=== PATIENT | male | born 1970 | race Caucasian/White ===

== ENCOUNTER 2018-02-11 12:04 | Inpatient (IN) | payer MEDICAID ==
[~2018-02-11] VITALS: Ht 162.6 cm; Wt 71.7 kg
[~2018-02-11 12:04] MED LIST: ALBU05 IH
[2018-02-11] MEDS ORDERED: METHYLPREDNISOLONE SOD SUCC 125 MG/2 ML VIAL IV STA (12:09)
[2018-02-11] MEDS ORDERED: ALBUTEROL (0.083%) 2.5MG/3ML NEB HHN STA (12:09)
[2018-02-11] MEDS ORDERED: MAGNESIUM 2 G PREMIX 50 ML IV STA (12:09)
[2018-02-11] MEDS ORDERED: IPRATROPIUM BROMIDE (0.02%) 0.5MG/2.5ML NEB HHN STA (12:09)
[2018-02-11 12:33] LABS: HEMATOCRIT. 43.8 % (42.0-52.0); HEMOGLOBIN. 15.1 g/dL (14.0-18.0); MEAN CORPUSCULAR VOLUME 93.2 fL (80.0-94.0); MEAN PLATELET VOLUME 8.1 fl (7.4-10.4); PLATELET 210 x1000/uL (130-400); RED CELL DISTRIBUTION WIDTH 14.6 % (11.6-14.6)
[2018-02-11 12:40] LABS: CHLORIDE 108 mEq/L (98-107)
[2018-02-11 12:41] LABS: PARTIAL THROMBOPLASTIN TIME 27.3 sec (23.4-31.0); PROTHROMBIN TIME 10.4 sec (9.4-11.6)
[2018-02-11] MEDS ORDERED: LEVOFLOXACIN 500MG PREMIX 100 ML IV ONE (13:00)
[2018-02-11] MEDS ORDERED: SODIUM CHLORIDE 0.9% 1000ML BAG (SEPSIS BOLUS) IV ONE (13:00)
[2018-02-11 14:28] LABS: PLATELET ESTIMATE NORMAL
[2018-02-11] MEDS ORDERED: IPRATROPIUM/ALBUTEROL 0.5-3(2.5)MG/3ML NEB HHN PRN (14:45)
[2018-02-11 15:15] VITALS: BP 110/76
[2018-02-11 16:00] VITALS: BP 111/80
[2018-02-11] MEDS ORDERED: PNEUMOCOCCAL 23-VAL P-SAC VAC 0.5 ML IM ONE (16:00)
[2018-02-11] MEDS: IPRATROPIUM/ALBUTEROL 0.5-3(2.5)MG/3ML NEB HHN SCH ×2 (16:15→21:08)
[2018-02-11 20:00] VITALS: BP 102/69
[2018-02-11] MEDS: METHYLPREDNISOLONE SOD SUCC 40 MG/ML VIAL IV SCH (21:19)
[2018-02-12] VITALS: BP 110/65
[2018-02-12] MEDS: IPRATROPIUM/ALBUTEROL 0.5-3(2.5)MG/3ML NEB HHN SCH ×6 (01:06→21:29)
[2018-02-12 04:00] VITALS: BP 101/52
[2018-02-12] MEDS: METHYLPREDNISOLONE SOD SUCC 40 MG/ML VIAL IV SCH ×3 (05:15→21:34)
[2018-02-12 06:35] LABS: HEMATOCRIT. 41.6 % (42.0-52.0); HEMOGLOBIN. 14.2 g/dL (14.0-18.0); LYMPHOCYTES % 8.2 % (20.0-50.0); MEAN CORPUSCULAR HEMOGLOBIN 32.1 pg (28.0-32.0); MEAN PLATELET VOLUME 8.6 fl (7.4-10.4); MONOCYTES % 3.3 % (2.0-8.0); NEUTROPHILS % 88.5 % (40.0-76.0); PLATELET 209 x1000/uL (130-400); RED BLOOD CELL COUNT 4.42 mill/uL (4.7-6.1); RED CELL DISTRIBUTION WIDTH 14.7 % (11.6-14.6)
[2018-02-12 08:00] VITALS: BP 112/67
[2018-02-12 08:18] LABS: CHLORIDE 111 mEq/L (98-107)
[2018-02-12 12:00] VITALS: BP 106/62
[2018-02-12 16:00] VITALS: BP 118/69
[2018-02-12 20:00] VITALS: BP 107/65
[2018-02-13] VITALS: BP 97/54
[2018-02-13] MEDS: IPRATROPIUM/ALBUTEROL 0.5-3(2.5)MG/3ML NEB HHN SCH ×6 (00:43→23:45)
[2018-02-13 04:00] VITALS: BP 98/65
[2018-02-13] MEDS: METHYLPREDNISOLONE SOD SUCC 40 MG/ML VIAL IV SCH ×3 (06:14→21:10)
[2018-02-13 09:00] VITALS: BP 101/63
[2018-02-13 12:00] VITALS: BP 101/64
[2018-02-13 16:00] VITALS: BP 100/61
[2018-02-13 20:00] VITALS: BP 108/66
[2018-02-14] VITALS: BP 105/60
[2018-02-14 04:00] VITALS: BP 102/66
[2018-02-14] MEDS: IPRATROPIUM/ALBUTEROL 0.5-3(2.5)MG/3ML NEB HHN SCH ×3 (04:05→11:13)
[2018-02-14] MEDS: METHYLPREDNISOLONE SOD SUCC 40 MG/ML VIAL IV SCH ×2 (05:30→13:15)
[2018-02-14 08:00] VITALS: BP 113/73
[2018-02-14 12:00] VITALS: BP 110/66
[2018-02-14 15:17] VITALS: BP 110/66
[2018-02-14 16:00] VITALS: BP 116/77
== END 2018-02-14 16:55 | disposition home or self-care (01) | DRG 133 ==
LOC: ER 12:26 → 7WST 13:09 → ENRESERV 13:19
PROVIDERS: ADMIT Internal Medicine; ATTEND Internal Medicine
DX: J96.01 Acute respiratory failure with hypoxia (principal); E87.2 Acidosis; J45.901 Unspecified asthma with (acute) exacerbation
CPT/HCPCS: 36415; 71045; 80048; 80053; 83605; 83880; 84484; 85025; 85610; 85730; 87040; 87086; 87804; 90732; 93005; 94640; 96365; 96375; 99291; J1956; J2920; J2930; J3475; J7030; J7611; J7620